=== PATIENT | male | born 1995 | race Caucasian/White ===

== ENCOUNTER 2020-10-08 02:31 | Emergency (ER) | payer MEDICAID ==
[~2020-10-08] VITALS: Ht 165.1 cm; Wt 80.0 kg
[~2020-10-08 02:31] MED LIST: HYDR-1348 PO
[2020-10-08 02:38] VITALS: BP 126/65
[2020-10-08] MEDS ORDERED: ACETAMINOPHEN 325MG TABLET PO ONE (03:45)
[2020-10-08] MEDS ORDERED: IBUPROFEN 600MG TABLET PO ONE (03:45)
[2020-10-08] MEDS ORDERED: NAPR-1176 MT (04:57)
[2020-10-08] MEDS ORDERED: ACET-2708 MT (04:57)
== END 2020-10-08 05:09 | disposition home or self-care (01) ==
LOC: ER 02:31
DX: S20.212A Contusion of left front wall of thorax, initial encounter (principal); V18.0XXA Pedal cycle driver injured in noncollision transport accident in nontraffic accident, initial encounter; Y93.55 Activity, bike riding; Y92.488 Other paved roadways as the place of occurrence of the external cause
CPT/HCPCS: 71101; 99283